=== PATIENT | female | born 1975 | race Caucasian/White ===

== ENCOUNTER → 2017-07-10 | Outpatient (CLI) | payer OTHER ==
--- NOTE | 2017-07-11 07:48 | MAMMOGRAPHY REPORT ---
BILATERAL DIGITAL SCREENING MAMMOGRAM TOMOSYNTHESIS WITH CAD: 07/10/2017 CLINICAL HISTORY: Routine screening. Patient has no complaints. TECHNIQUE: Breast tomosynthesis in addition to standard 2D mammography was performed. Current study was also evaluated with a Computer Aided Detection (CAD) system. COMPARISON: Comparison is made to exams dated: 06/19/2016 mammogram, 06/07/2016 mammogram, 05/24/2015 ma mmogram, 05/11/2014 mammogram, 02/14/2012 mammogram, and 04/20/2013 mammogram - [facility] nter. BREAST COMPOSITION: The tissue of both breasts is heterogeneously dense, which may obscure small mas ses. FINDINGS: The parenchymal pattern is unchanged. No developing mass, architectural distortion or clus ter of suspicious microcalcifications is seen in either breast. IMPRESSION: ACR BI-RADS CATEGORY 2: BENIGN There is no mammographic evidence of malignancy. A 1 year screening mammogram is recommended. The pa tient will receive written notification of the results. Approximately 10% of breast cancers are not detected with mammography. A negative mammographic report should not delay biopsy if a clinically suggestive mass is present. Laurie Jesus M.D. ay/:07/10/2017 12:18:51 Drier Helper: Deisy SANTANA(Margareth)(Esther), [facility] letter sent: Normal 1/2 BI-RADS Code: ACR BI-RADS Category 2: Benign
== END | disposition home or self-care (01) ==
LOC: C.MAMM 11:41
PROVIDERS: ATTEND Obstetrics & Gynecology
DX: Z12.31 Encounter for screening mammogram for malignant neoplasm of breast (principal)

== ENCOUNTER → 2017-08-20 | Outpatient (CLI) | payer OTHER ==
[2017-08-20 09:49] LABS: URINE APPEARANCE CLEAR (CLEAR); URINE BILIRUBIN NEG (NEG); URINE COLOR YELLOW; URINE EPITHELIAL CELL AUTO >30 /lpf (0-5); URINE NITRITE NEG (NEG); URINE PH 5.5 (4.5-7.5); URINE SPECIFIC GRAVITY 1.022 (1.000-1.030); UROBILINOGEN NEG (NEG)
[2017-08-20 09:52] LABS: MANUAL MICROSCOPIC REQUIRED? NO; REVIEW REQ? NO
[2017-08-20 09:57] LABS: ALT/SGPT 20 U/L (12-78); AST/SGOT 13 U/L (15-37); BLOOD UREA NITROGEN 8 mg/dl (7-18); BUN/CREATININE RATIO 8.8 (10-20); CALCIUM 8.7 mg/dl (8.5-10.1); CARBON DIOXIDE 28 mmol/L (21-32); CHLORIDE 101 mmol/L (98-107); CHOLESTEROL 174 mg/dl (0-200); CREATININE 0.89 mg/dl (0.60-1.20); GLUCOSE 89 mg/dl (70-99); POTASSIUM 3.8 mmol/L (3.5-5.1); SODIUM 136 mmol/L (136-145); TRIGLYCERIDES 177 mg/dl (0-150); VERY LOW DENSITY LIPOPROT CALC 35 mg/dl
[2017-08-20 10:05] LABS: ALKALINE PHOSPHATASE 72 U/L (45-117); CHOLESTEROL/HDL RATIO 3.8; HDL CHOLESTEROL 46 mg/dl; LDL CHOLESTEROL CALCULATED 93 mg/dl
[2017-08-20 10:11] LABS: BASO % 0.7 %; BASO ABS # 0.05 K/uL (0-0.2); COMPLETE YES; EOS % 3.4 %; HEMATOCRIT 40.9 % (37-47); IG% 0.3 %; LYMPH % 34.7 %; LYMPH ABS # 2.62 K/uL (1.2-3.4); MEAN CELL VOLUME 88.3 fL (80-100); MEAN CORPUSCULAR HEMOGLOBIN 28.7 pg (25-34); MEAN CORPUSCULAR HGB CONC 32.5 g/dl (32-36); MONO % 9.3 %; NEUT % 51.6 %; PLATELET COUNT 324 K/uL (130-400); RED BLOOD COUNT 4.63 M/uL (4.2-5.4); WHITE BLOOD COUNT 7.56 K/uL (4.8-10.8)
== END | disposition home or self-care (01) ==
LOC: C.LAB1850 07:14
PROVIDERS: ATTEND Nurse Practitioner
DX: Z00.00 Encounter for general adult medical examination without abnormal findings (principal)

== ENCOUNTER → 2017-12-04 | Outpatient (CLI) | payer OTHER ==
[~2017-12-04] MED LIST: GADAVIST IV PRN
--- NOTE | 2017-12-04 13:13 | DIAGNOSTIC IMAGING REPORT ---
BRAIN COMBO HISTORY: 42 years-old Female SHIPMAN,MIGRAINEHA,MIGRAINE chronic migraine headaches COMPARISON: None available TECHNIQUE: Multiplanar multisequence MRI of the brain was obtained both with and without the use of 7 mL Gadavist FINDINGS: The large [id number] quilting machine operator localizer images demonstrate no gross abnormality. The midline structures including the corpus callosum, brainstem, optic chiasm, infundibulum and pituitary gland and pineal gland are unremarkable in the sagittal T1 series. No cerebellar tonsillar herniation. Mild degenerative changes of the imaged cervical spine. There is no restricted diffusion to suggest acute or subacute infarction. There is no acute intracranial hemorrhage, midline shift, abnormal extra-axial collections, hydrocephalus or intracranial mass identified. No significant T2/FLAIR signal abnormalities. There is no abnormal intra-axial or extra-axial enhancement identified. The major flow voids at the level of the skull base appear patent. The orbits are symmetric and within normal limits. Mastoid air cells are clear. Minimal polypoid mucosal thickening of the medial wall right maxillary sinus with mild mucosal thickening of the ethmoid air cells. Left emely bullosa. Mild rightward deviation and spurring of the nasal septum. Scalp, calvarium and soft tissues are within normal limits. IMPRESSION: 1. No acute intracranial abnormality identified. 2. No abnormal enhancement. The above report was generated using voice recognition software. It may contain grammatical, syntax or spelling errors. Electronically signed by: Stephen Apodaca M.D. 12/04/2017 1:11 PM Dictated Date/Time: 12/04/2017 1:06 PM
== END | disposition home or self-care (01) ==
LOC: C.MRIBC 11:54
PROVIDERS: ATTEND Nurse Practitioner
DX: G43.909 Migraine, unspecified, not intractable, without status migrainosus (principal)

== ENCOUNTER 2018-01-23 20:41 | Emergency (ER) | payer OTHER ==
[~2018-01-23] VITALS: Ht 157.5 cm; Wt 70.4 kg
[2018-01-23 20:51] VITALS: TEMP 36.7; Ht 157.5 cm; Wt 70.4 kg
[2018-01-23] MEDS ORDERED: DiphenhydrAMINE HCL 50 MG/ML VIAL IV STA ×2 (21:07→22:18)
[2018-01-23] MEDS ORDERED: METHYLPREDNISOLONE 125 MG VIAL IV STA (21:07)
[2018-01-23] MEDS ORDERED: RANITIDINE HCL 50 MG/100 ML D5W IV STA (21:07)
[2018-01-23] MEDS ORDERED: PRED20TA PO (22:14)
--- NOTE | 2018-01-23 22:14 | EMERGENCY ROOM VISIT NOTE ---
History Report prepared by Khurram: Danielle Ramírez Under the Supervision of: Dr. Kai Vides D.O. First contact with patient: 21:01 Chief Complaint: ALLERGIC REACTION Stated Complaint: ALLERGIC REACTION History of Present Illness The patient is a 42 year old female who presents to the Emergency Room with complaints of a persistent allergic reaction that occurred 4 hours ago. The patient reports she has been doing immunotherapy for the past year. She states she received a shot today around 4:30pm and around 5:45pms she started to get chest pain and wheezy. She notes she thought she was getting an allergic reaction so she took 2 Benadryl. She reports she felt a little better but then she started to get hives and swelling around 8:00pm. She states she started to become nauseous. The patient notes she has had seasonal allergies for a while but more recently she has developed more food allergies. The patient notes she has a sore throat. She states her allergies started over 10 years ago. Source of History: patient Onset: 4 hours ago Position: other (global) Timing: other (persistent) Associated Symptoms: + sorethroat, + chest pain, + SOB Review of Systems See HPI for pertinent positives & negatives. A total of 10 systems reviewed and were otherwise negative. Past Medical & Surgical Patient reports no past medical or surgical history. Family History Cancer Diabetes mellitus Heart disease Hypertension Social History Smoking Status: Never Smoker Smokeless Tobacco Use: No Drug Use: none Marital Status: Housing Status: lives with family Occupation Status: employed Current/Historical Medications Scheduled Fluticasone Propionate (Nasal) (Flonase Allergy Relief), 1 SPRAY JONO DAILY Levocetirizine Dihydrochloride (Xyzal), 1 TAB PO DAILY Levothyroxine Sodium (Synthroid), 50 MCG PO DAILY Prednisone (Prednisone), 2 TAB PO DAILY Rizatriptan Benzoate (Maxalt), 10 MG PO PRN UD Topiramate (Topamax), 100 MG PO DAILY Scheduled PRN Naproxen (Naprosyn), 500 MG PO BID PRN for Pain Prochlorperazine Maleate (Compazine), 10 MG PO Q6H PRN for Nausea Allergies Coded Allergies: No Known Allergies (Verified Allergy, Unknown, 11/05/02) Physical Exam Vital Signs Date Time Temp Pulse Resp B/P (MAP) Pulse Ox O2 Delivery O2 Flow Rate FiO2 5/3/18 22:48 101 18 100/66 99 01/23/18 22:05 101 18 93/55 100 Room Air 01/23/18 21:36 99 Room Air 01/23/18 21:14 118 01/23/18 20:51 36.7 123 20 101/70 98 Room Air Physical Exam CONSTITUTIONAL/VITAL SIGNS: Reviewed / noted above. GENERAL: Non-toxic in appearance. INTEGUMENTARY: Warm, dry, and [place]. Defused erythema and hive like skin changes. HEAD: Normocephalic. EYES: without scleral icterus or trauma. ENT/OROPHARYNX: clear and moist. No obvious intraorbital mucosal edema. LYMPHADENOPATHY/NECK: Is supple without lymphadenopathy or meningismus. RESPIRATORY: Lungs clear and equal. CARDIOVASCULAR: Regular rate and rhythm. GI/ABDOMEN: Soft and nontender. No organomegaly or pulsatile mass. No rebound or guarding. Normal bowel sounds. EXTREMITIES: Warm and well perfused. BACK: No CVA tenderness. NEUROLOGICAL: Intact without focal deficits. PSYCHIATRIC: normal affect. MUSCULOSKELETAL: Normally developed with good muscle tone. Medical Decision & Procedures Medications Administered Medications (Trade) Dose Ordered Sig/Stephany Route Start Time Stop Time Status Last Admin Dose Admin Ranitidine HCl (zANTac IV) 50 mg NOW STAT IV 01/23/18 21:07 01/23/18 21:09 DC 01/23/18 21:29 50 MG Methylprednisolone Sodium Succinate (Solu-Medrol IV) 125 mg NOW STAT IV 01/23/18 21:07 01/23/18 21:09 DC 01/23/18 21:15 125 MG Diphenhydramine HCl (Benadryl Inj) 25 mg NOW STAT IV 01/23/18 21:07 01/23/18 21:09 DC 01/23/18 21:15 25 MG Diphenhydramine HCl (Benadryl Inj) 25 mg NOW STAT IV 01/23/18 22:18 01/23/18 22:19 DC 01/23/18 22:29 25 MG ED Course 2100: Previous medical records were reviewed. The patient was evaluated in room C11B. A complete history and physical examination was performed. 2106: Benadryl Inj 25 mg IV, Solu-Medrol IV, zANTac IV 50 mg IV. 2214: On reevaluation, the patient is resting comfortably. I discussed the results and findings with the patient. She verbalized agreement of the treatment plan. She was discharged home. Medical Decision Differential diagnosis: Etiologies such as allergic reaction, anaphylaxis, urticaria, Han-Tao syndrome, toxic epidermal necrolysis, erythema multiforme, cellulitis, as well as others were entertained. This is a 42-year-old female who presents to the ED with a chief complaint of allergic reaction. The patient receives immunotherapy shots once weekly. She received her shot today and a couple of hours later she developed symptoms of hives. She also reported some facial swelling. She took some Benadryl that seemed to improve her symptoms somewhat but then she developed nausea decided to come in for evaluation. The patient has diffuse erythema and some hives as noted above over her entire body. She has some pruritus. The patient was given IV Benadryl, IV Solu-Medrol and IV Zantac. She will be discharged on prednisone and continue Benadryl. She is felt to be stable for discharge. Her symptoms did improve some with this. Medication Reconcilliation Current Medication List: was personally reviewed by me Impression Primary Impression: Allergic reaction Scribe Attestation The scribe's documentation has been prepared under my direction and personally reviewed by me in its entirety. I confirm that the note above accurately reflects all work, treatment, procedures, and medical decision making performed by me. Departure Information Dispostion Home / Self-Care Prescriptions Prednisone (Prednisone) 20 Mg Tab 2 TAB PO DAILY for 4 Days, #8 TAB Prov: Kai Vides D.O. 01/23/18 Referrals ROSSANA KANG D.O. (PCP) Patient Instructions My [facility] [employer] Additional Instructions Take Benadryl 25-50 mg every 6 hours for symptoms. Prednisone as prescribed daily. Follow-up with your doctor for further care and evaluation in 1-7 days. Return to the emergency department for worsening or new symptoms or any concerns. You have been examined and treated today on an emergency basis only. This is not a substitute for, or an effort to provide, complete comprehensive medical care. It is impossible to recognize and treat all injuries or illnesses in a single emergency department visit. It is therefore important that you follow up closely with your doctor. Call as soon as possible for an appointment.
[2018-01-23] MEDS ORDERED: LEVO5TAB2 PO (22:36)
[2018-01-23] MEDS ORDERED: PROC1TAB5 PO (22:36)
[2018-01-23] MEDS ORDERED: NAPR-1169 PO (22:36)
[2018-01-23] MEDS ORDERED: TOPI100T20 PO (22:36)
[2018-01-23] MEDS ORDERED: RIZA10TA18 PO (22:36)
[2018-01-23] MEDS ORDERED: LEVO50TA PO (22:36)
[2018-01-23] MEDS ORDERED: FLUT0.15 NAE (22:36)
[2018-01-23 22:48] VITALS: BP 100/66; PULSE 101; O2SAT 99
== END 2018-01-23 22:45 | disposition home or self-care (01) ==
LOC: C.EDB 20:41 → C.EDC 22:45
DX: T78.40XA Allergy, unspecified, initial encounter (principal); X58.XXXA Exposure to other specified factors, initial encounter